=== PATIENT | male | born 1990 | race Caucasian/White ===

== ENCOUNTER 2017-11-26 21:33 | Emergency (ER) | payer OTHER ==
[~2017-11-26] VITALS: Ht 172.7 cm; Wt 63.5 kg
[~2017-11-26 21:33] MED LIST: ABILIFY PO; ALBU90OI; ATOM40 PO; Advil200 M1 PO; BUPR150T2; CLIN150 PO; CLON1 PO; CLON2 PO; CYCL10 PO; ESCI10; ESCI20; ESCI20 PO; FLUT.05NI; FLUT110OIA; HYDACE5 PO; IBUPROFEN; KETO200 PO; LITH300C PO; NAPR250 PO; NAPR550 PO; OLAN5 PO; PRED20 PO; PROACE100 PO; PROM25 PO; QUET200; RXCYCL10 PO; RXDIPATR PO; TOPI100 PO; TRAM50 PO; TRAZ100 PO; TRAZ50 PO; Ultram50 MG PO; [UNRECOGNIZED DRUG - REMARK]
[2017-11-26 23:02] LABS: Influenza A Positive (NEGATIVE); Influenza B Negative (NEGATIVE)
[2017-11-26] MEDS ORDERED: Tamiflu75 MG PO (23:15)
== END 2017-11-26 23:28 | disposition home or self-care (01) ==
LOC: ER 21:33
PROVIDERS: Emergency Medicine
DX: J10.1 Influenza due to other identified influenza virus with other respiratory manifestations (principal); Z88.2 Allergy status to sulfonamides; Z88.1 Allergy status to other antibiotic agents; Z88.8 Allergy status to other drugs, medicaments and biological substances; Z88.0 Allergy status to penicillin; F31.9 Bipolar disorder, unspecified
CPT/HCPCS: 71046; 87081; 87430; 87804; 99283

== ENCOUNTER → 2017-11-28 | Outpatient (CLI) | payer OTHER ==
[~2017-11-28] MED LIST changes: +Tamiflu75 MG PO; +Zofran Odt4 MG PO
[2017-11-28 15:54] LABS: BASOPHILS ABSOLUTE AUTO 0.03 K/mm3 (0.00-0.23); BASOPHILS PERCENT AUTO 1 % (0-2); EOSINOPHILS ABSOLUTE AUTO 0.01 K/mm3 (0.00-0.68); EOSINOPHILS PERCENT AUTO 0 % (0-6); Hematocrit 44.9 % (37.0-53.0); Hemoglobin 15.4 g/dL (13.5-17.5); IMMATURE GRAN ABSOLUTE AUTO 0.03 K/mm3 (0.00-0.10); IMMATURE GRAN PERCENT AUTO 1 % (0-1); LYMPHOCYTES ABSOLUTE AUTO 0.66 K/mm3 (0.84-5.20); LYMPHOCYTES PERCENT AUTO 14 % (21-46); MONOCYTES ABSOLUTE AUTO 0.96 K/mm3 (0.16-1.47); MONOCYTES PERCENT AUTO 20 % (4-13); Mean Corpuscular HGB 31.2 pg (26.0-34.0); Mean Corpuscular HGB Conc 34.3 g/dL (31.5-36.5); Mean Corpuscular Volume 91 fL (80-100); Mean Platelet Volume 13.5 fL (9.1-12.4); NEUTROPHILS ABSOLUTE AUTO 3.03 K/mm3 (1.96-9.15); NEUTROPHILS PERCENT AUTO 64 % (41-73); Platelet Count 109 K/mm3 (150-400); RDW Coefficient Variation 12.7 % (11.7-14.2); RDW Standard Deviation 41.7 fL (35.1-46.3); Red Blood Cell Count 4.94 M/mm3 (4.30-5.90); White Blood Cell Count 4.72 K/mm3 (4.00-11.30)
[2017-11-28 16:03] LABS: Alanine Aminotransfer (ALT/SGP 26 U/L (12-78); Albumin, Blood 4.2 g/dL (3.4-5.0); Albumin/Globulin Ratio 1.2 (0.8-1.8); Alk Phos 62 U/L (40-126); Anion Gap 13 mmol/L (6-16); Aspartate Aminotrans (AST/SGOT 24 U/L (12-37); Bilirubin, Total 0.5 mg/dL (0.1-1.0); Blood Urea Nitrogen 8 mg/dL (8-24); Bun/Creatinine Ratio 8.8 (12.0-20.0); CO2, Blood 24 mmol/L (21-32); Calcium, Blood 9.2 mg/dL (8.5-10.1); Chloride, Blood 101 mmol/L (98-108); Creatinine, Blood 0.91 mg/dL (0.60-1.20); Globulin, Blood 3.4 g/dL (2.2-4.0); Glomerular Filtration Rate >60 (60-); Glucose, Blood 74 mg/dL (70-99); Potassium, Blood 3.7 mmol/L (3.5-5.5); Sodium, Blood 138 mmol/L (136-145); Total Protein, Blood 7.6 g/dL (6.4-8.2)
== END | disposition home or self-care (01) ==
LOC: LAB EV 15:36
PROVIDERS: Physician Assistant
DX: R50.9 Fever, unspecified (principal)
CPT/HCPCS: 80053; 85025

== ENCOUNTER 2018-05-31 22:57 | Emergency (ER) | payer OTHER ==
[~2018-05-31] VITALS: Ht 172.7 cm; Wt 65.8 kg
[~2018-05-31 22:57] MED LIST changes: -Zofran Odt4 MG PO
[2018-06-01] MEDS ORDERED: Zofran Odt4 MG PO (01:39)
== END 2018-06-01 01:54 | disposition home or self-care (01) ==
LOC: ER 22:57
DX: R11.2 Nausea with vomiting, unspecified (principal); Z88.2 Allergy status to sulfonamides; Z88.1 Allergy status to other antibiotic agents; Z88.0 Allergy status to penicillin; Z88.8 Allergy status to other drugs, medicaments and biological substances
CPT/HCPCS: 99283

== ENCOUNTER 2019-07-14 16:35 | Emergency (ER) | payer OTHER ==
[~2019-07-14] VITALS: Ht 172.7 cm; Wt 56.7 kg
[~2019-07-14 16:35] MED LIST changes: +B Complex #11 EACH PO; +MONT10T PO; +Zofran Odt4 MG PO
[2019-07-14 17:26] LABS: Source, Urine Clean Catch
[2019-07-14 17:31] LABS: BASOPHILS ABSOLUTE AUTO 0.04 K/mm3 (0.00-0.23); BASOPHILS PERCENT AUTO 1 % (0-2); EOSINOPHILS ABSOLUTE AUTO 0.09 K/mm3 (0.00-0.68); EOSINOPHILS PERCENT AUTO 1 % (0-6); Hematocrit 45.6 % (37.0-53.0); Hemoglobin 15.4 g/dL (13.5-17.5); IMMATURE GRAN ABSOLUTE AUTO 0.02 K/mm3 (0.00-0.10); IMMATURE GRAN PERCENT AUTO 0 % (0-1); LYMPHOCYTES PERCENT AUTO 35 % (21-46); MONOCYTES ABSOLUTE AUTO 0.49 K/mm3 (0.16-1.47); MONOCYTES PERCENT AUTO 7 % (4-13); Mean Corpuscular HGB 31.1 pg (26.0-34.0); Mean Corpuscular HGB Conc 33.8 g/dL (31.5-36.5); Mean Corpuscular Volume 92 fL (80-100); Mean Platelet Volume 11.9 fL (9.1-12.4); NEUTROPHILS ABSOLUTE AUTO 4.22 K/mm3 (1.96-9.15); NEUTROPHILS PERCENT AUTO 57 % (41-73); Platelet Count 207 K/mm3 (150-400); RDW Coefficient Variation 11.7 % (11.7-14.2); RDW Standard Deviation 39.7 fL (35.1-46.3); Red Blood Cell Count 4.95 M/mm3 (4.30-5.90); White Blood Cell Count 7.46 K/mm3 (4.00-11.30)
[2019-07-14 17:33] LABS: Appearance, Urine Clear (Clear); Bilirubin, Urine Neg (Neg); Blood, Urine Neg (Neg); Color, Urine Yellow (P-Yellow); Glucose Qualitative, Urine Neg (Neg); Ketones, Urine 2+ (Neg); Leukocyte Esterase, Urine Neg (Neg); Nitrite, Urine Neg (Neg); Protein, Urine 1+ (Neg); Urobilinogen, Urine NORM (Normal)
[2019-07-14 17:49] LABS: Alanine Aminotransfer (ALT/SGP 29 U/L (12-78); Albumin, Blood 4.6 g/dL (3.4-5.0); Albumin/Globulin Ratio 1.4 (0.8-1.8); Alk Phos 56 U/L (50-136); Anion Gap 7 mmol/L (6-16); Aspartate Aminotrans (AST/SGOT 24 U/L (12-37); Bilirubin, Total 0.4 mg/dL (0.1-1.0); Blood Urea Nitrogen 10 mg/dL (8-24); CO2, Blood 26 mmol/L (21-32); Calcium, Blood 9.6 mg/dL (8.5-10.1); Chloride, Blood 105 mmol/L (98-108); Creatinine, Blood 0.77 mg/dL (0.60-1.20); Globulin, Blood 3.3 g/dL (2.2-4.0); Glomerular Filtration Rate >60 (60-); Glucose, Blood 85 mg/dL (70-99); Potassium, Blood 3.7 mmol/L (3.5-5.5); Sodium, Blood 138 mmol/L (136-145); Total Protein, Blood 7.9 g/dL (6.4-8.2)
[2019-07-14] MEDS ORDERED: Monodox100 MG PO (20:20)
== END 2019-07-14 20:20 | disposition home or self-care (01) ==
LOC: ER 16:35
PROVIDERS: Emergency Medicine
DX: H92.03 Otalgia, bilateral (principal); M54.2 Cervicalgia; G89.29 Other chronic pain; R09.81 Nasal congestion; R05 Cough; Z88.2 Allergy status to sulfonamides; Z88.1 Allergy status to other antibiotic agents; Z88.8 Allergy status to other drugs, medicaments and biological substances; Z88.0 Allergy status to penicillin; Z88.5 Allergy status to narcotic agent
CPT/HCPCS: 36415; 80053; 85025; 93005; 93010; 96361; 96374; 99284-25; J1885; J7030